=== PATIENT | female | born 1980 | race Hispanic/Latino ===

== ENCOUNTER 2016-05-21 17:07 | Emergency (ER) | payer MEDICAID ==
[2016-05-21 18:28] LABS: Bilirubin,Urine NEG (Negative); Blood,Urine NEG (Negative); Ketones,Urine NEG (Negative); Leukocyte Esterase,Urine NEG (Negative); Mucus,Urine FEW /HPF; Nitrite,Urine NEG (Negative); Protein,Urine <15 mg/dL mg/dL (Negative); Urobilinogen,Urine < 2.0 mg/dL (<2.0)
[2016-05-21 21:44] VITALS: BP 136/89
[2016-05-22] MEDS ORDERED: TORADOL IV ONE (06:58)
[2016-05-22 07:18] LABS: Basophils % (Auto) 0.7 % (0.0-1.8); Eosinophils % (Auto) 2.1 % (0.0-4.3); Hematocrit 46.4 % (30.3-42.9); Hemoglobin 15.2 gm/dl (10.1-14.3); Mean Corpuscular HGB Conc 33 % (30-34); Mean Corpuscular Hemoglobin 30 pg (28-32); Mean Corpuscular Volume 91 fl (79-97); Platelet Count 211 K/mm3 (140-440); Red Blood Count 5.11 M/mm3 (3.65-5.03); Red Cell Distribution Width 13.2 % (13.2-15.2); White Blood Count 10.1 K/mm3 (4.5-11.0)
--- NOTE | 2016-05-22 07:23 | Emergency Department Report ---
HPI - General Chief Complaint: Abdominal Pain Time Seen by Provider: 05/22/16 06:51 - HPI HPI: Chief complaint: Right flank pain HPI: Patient is a 35-year-old female with a history of recurrent kidney stones who has been having right flank pain typical of her kidney stones off and on for 2 months. Patient states that recently her pain is become constant. Patient tried to see her urologist Dr. Jarrett and when she went to the [place] office to see his partner, she states she was told they didn't take her insurance. Patient states 2 days ago she had a temperature of 101 complains of nausea but no vomiting. No dysuria frequency or urgency. Patient states she has had to have cystoscopy to remove kidney stones in the past. Mode of arrival: private car Source: Patient Began: 2 months Duration: See above Context: See above Quality: Typical kidney stone pain Severity: 10 out of 10 Improved with: Nothing Worsened with: Nothing Associated signs and symptoms: See above ED Past Medical Hx - Past Medical History Previous Medical History?: Yes Hx Hypertension: Yes (2013 DR JUANJO KEANE(PCP) NO LONGER TAKES MEDICATION FOR BP) Hx Headaches / Migraines: Yes ((MIGRAINES)) Hx Kidney Stones: Yes Hx Asthma: Yes (NO INHALER USE >1 YR) Additional medical history: endometrial oblation, , cyst removal, R. foot repair - Surgical History Past Surgical History?: Yes Additional Surgical History: Hysterectomy, , right foot surgery, - Social History Smoking Status: Current Every Day Smoker Substance Use Type: Alcohol - Medications Home Medications: Home Medications Medication Instructions Recorded Confirmed Last Taken Type Tamsulosin [Flomax] 0.4 mg PO QDAY #5 cap 04/07/15 04/25/15 2 Weeks Ago Rx oxyCODONE /ACETAMINOPHEN [Percocet 1 tab PO Q4HR PRN #20 tab 04/07/15 04/24/15 Unknown Rx 5/325] Amitriptyline [Elavil] 50 mg PO DAILY 04/24/15 04/25/15 04/23/15 History Ciprofloxacin HCl [Ciprofloxacin 500 mg PO DAILY 04/24/15 04/25/15 04/24/15 18: 30 History TAB] Oxycodone HCl/Acetaminophen 1 each PO Q6HR PRN 04/24/15 04/25/15 04/24/15 19:00 History [Percocet 7.5/325 mg] Topiramate [Topamax] 200 mg PO BID 04/24/15 04/25/15 04/24/15 06:30 History traMADol [Ultram] 50 mg PO Q6HR PRN #14 tablet 05/22/16 Unknown Rx ED Review of Systems ROS: Stated complaint: POSS KIDNEY STONE /ABD PAIN Other details as noted in HPI ROS Constitutional: No fever ENT: No uri symptoms Cardiovascular: No chest pain Respiratory: No sob or cough GI: No nausea vomiting or diarrhea : No dysuria frequency or urgency, Skin: No rash Neuro: No focal weakness or numbness Psych: No depression [place]/lymph: No edema Physical Exam - Physical Exam Vital Signs: Vital Signs 05/21/16 05/21/16 17:34 21:43 Temperature 98.4 F 99 F Pulse Rate 100 H 102 H Respiratory 18 20 Rate Blood Pressure 134/94 136/89 O2 Sat by Pulse 97 99 Oximetry Physical Exam: GENERAL: The patient is an obese female in no acute distress. HEENT: Normocephalic. Atraumatic. Extraocular motions are intact. Patient has moist mucous membranes. NECK: Supple. No meningitic signs are noted. There is no adenopathy noted. CHEST/LUNGS: Clear to auscultation. There is no respiratory distress noted. HEART/CARDIOVASCULAR: Regular. There is no tachycardia. There is no gallop rub or murmur. ABDOMEN: Abdomen is soft, nontender. Patient has normal bowel sounds. There is no abdominal distention. SKIN: There is no rash. There is no edema. There is no diaphoresis. NEURO: The patient is awake, alert, and oriented. The patient is cooperative. The patient has no focal neurologic deficits. The patient has normal speech. MUSCULOSKELETAL: There is no tenderness or deformity. There is no limitation range of motion. There is no evidence of acute injury. ED Course Vital Signs 05/21/16 05/21/16 17:34 21:43 Temperature 98.4 F 99 F Pulse Rate 100 H 102 H Respiratory 18 20 Rate Blood Pressure 134/94 136/89 O2 Sat by Pulse 97 99 Oximetry ED Medical Decision Making - Lab Data Result diagrams: 05/22/16 07:01 05/22/16 07:01 Laboratory Tests 05/21/16 18:01 Urine Turbidity Clear Urine pH 5.0 Urine Glucose (UA) Neg Urine Ketones Neg Urine Blood Neg Urine Nitrite Neg Urine Bilirubin Neg Urine Urobilinogen < 2.0 Ur Leukocyte Esterase Neg Urine WBC (Auto) 1.0 Urine RBC (Auto) 2.0 U Epithel Cells (Auto) 2.0 Urine Mucus Few - Radiology Data Radiology results: report reviewed (CT of the abdomen and pelvis shows no kidney stone but her right ovarian cyst of 8 cm. Patient previously had a 6-1/ 2 right ovarian cyst on her previous CT scan.) Critical care attestation.: If time is entered above; I have spent that time in minutes in the direct care of this critically ill patient, excluding procedure time. ED Disposition Clinical Impression: Right ovarian cyst Disposition: DISCHARGED TO HOME OR SELFCARE Is pt being admited?: No Does the pt Need Aspirin: No Condition: Stable Instructions: Abdominal Pain (ED) Prescriptions: traMADol [Ultram] 50 mg PO Q6HR PRN #14 tablet PRN Reason: Pain Referrals: DR DANUTA [Other] - 3-5 Days TYLER SCHMID MD [Staff Physician] - 3-5 Days (Dr. Schmid is an [employer] with whom you may follow-up for your ovarian cyst or you may follow-up with your own OB/ COMMERCIAL DEVELOPMENT MANAGER) Time of Disposition: 07:47
[2016-05-22 07:31] LABS: Anion Gap 19 mmol/L; BUN/Creatinine Ratio 16.25; Blood Urea Nitrogen 13 mg/dL (7-17); Calcium 8.8 mg/dL (8.4-10.2); Carbon Dioxide 20 mmol/L (22-30); Chloride 103.1 mmol/L (98-107); Glucose 89 mg/dL (65-100); Potassium 3.5 mmol/L (3.6-5.0); Sodium 139 mmol/L (137-145)
--- NOTE | 2016-05-22 07:50 | Cat Scan Report ---
CT ABDOMEN AND PELVIS WITHOUT CONTRAST INDICATION: Abdominal pain, right flank pain. History of kidney stones. COMPARISON: 06/21/2015 FINDINGS: Noncontrast abdomen and pelvis CT performed. LUNG BASES: Left hemidiaphragm minimally elevated. Nonspecific distal esophageal wall thickening, not excluded for gastroesophageal reflux and/or hiatal hernia, amongst others. ABDOMEN: Please note that sensitivity to detect small visceral lesions is limited due to the absence of intravenous or oral contrast. Cholecystectomy clips and couple of small right hepatic calcified granulomas again noted. Right hepatic lobe approximately 18.5 cm in midclavicular length. Otherwise grossly unremarkable unenhanced liver, spleen, pancreas, adrenals, nonaneurysmal abdominal aorta, IVC and nonhydronephrotic, slightly lobulated kidneys. No radiopaque renal calculi. Few small, subcentimeter mesenteric and retroperitoneal lymph nodes. No ascites. Nonopacified GI tract evaluation limited, though grossly nonobstructive. Normal appendix. PELVIS: Right adnexal/ovarian cyst is now 8.5 x 6.8 cm on axial series 2, image 315 and 16 HU, previously 6.5 cm in maximum dimension. Urinary bladder appears to drape over this cyst. Normal left adnexa/ovary and the rectosigmoid. Uterus again surgically absent with few small phleboliths. Mild bilateral inguinal canal region fatty prominence again noted. Mild lower thoracic and mid to lower lumbar spine degenerative changes, including mild spurring, few Schmorl's nodes and mild to moderate L4-L5 disc narrowing and increased adjacent sclerosis. Slight L5-S1 disc vacuum phenomenon is also new. CONCLUSION: 1. Interval enlargement of right adnexal/ovarian cyst since June 2015, as described. 2. Mild interval progression of L4-L5 degenerative changes, as above. 3. Various other stable incidental findings, including cholecystectomy, old healed granulomatous disease, hysterectomy and a normal appendix, as described. I phoned the above results to Dr. Gomez in the ER, 7:30 AM, 05/22/2016. Thank you for the opportunity to participate in this patient's care.
[2016-05-22] MEDS ORDERED: TORADOL ONE (08:06)
[2016-05-22] MEDS ORDERED: TORADOL IM ONE (08:07)
== END 2016-05-22 08:19 | disposition home or self-care (01) ==
LOC: ED 17:07
DX: N83.201 Unspecified ovarian cyst, right side (principal); I10 Essential (primary) hypertension; G43.909 Migraine, unspecified, not intractable, without status migrainosus; J45.909 Unspecified asthma, uncomplicated; Z90.710 Acquired absence of both cervix and uterus; F17.200 Nicotine dependence, unspecified, uncomplicated; Z87.442 Personal history of urinary calculi
CPT/HCPCS: 36415; 74176; 80048; 81001; 85025; 96372; 99284; J1885